=== PATIENT | female | born 1975 | race Hispanic/Latino ===

== ENCOUNTER 2016-12-14 18:09 | Emergency (ER) | payer BC ==
[2016-12-14 18:19] VITALS: BP 132/83
[2016-12-14 18:51] LABS: Basophils % (Auto) 1.1 % (0.0-1.8); Eosinophils % (Auto) 2.7 % (0.0-4.3); Hematocrit 30.3 % (30.3-42.9); Hemoglobin 9.4 gm/dl (10.1-14.3); Mean Corpuscular HGB Conc 31 % (30-34); Platelet Count 302 K/mm3 (140-440); Red Blood Count 4.43 M/mm3 (3.65-5.03); Red Cell Distribution Width 17.7 % (13.2-15.2); White Blood Count 8.8 K/mm3 (4.5-11.0)
[2016-12-14 18:54] LABS: Mean Corpuscular Volume 68 fl (79-97)
[2016-12-14 18:55] LABS: Mean Corpuscular Hemoglobin 21 pg (28-32)
[2016-12-14 19:02] LABS: Bilirubin,Urine NEG (Negative); Blood,Urine SM (Negative); Ketones,Urine NEG (Negative); Leukocyte Esterase,Urine LG (Negative); Mucus,Urine FEW /HPF; Nitrite,Urine NEG (Negative); Protein,Urine <15 mg/dL mg/dL (Negative); Urobilinogen,Urine < 2.0 mg/dL (<2.0)
[2016-12-14 19:10] LABS: Alanine Aminotransferase 11 units/L (7-56); Albumin 3.8 g/dL (3.9-5); Albumin/Globulin Ratio 1.1 %; Alkaline Phosphatase 31 units/L (35-129); Amylase 51 units/L (27-131); Anion Gap 19 mmol/L; Bilirubin,Total < 0.2 mg/dL (0.1-1.2); Blood Urea Nitrogen 16 mg/dL (7-17); Calcium 8.4 mg/dL (8.4-10.2); Carbon Dioxide 21 mmol/L (22-30); Chloride 103.6 mmol/L (98-107); Glucose 89 mg/dL (65-100); Lipase 34 units/L (13-60); Potassium 4.5 mmol/L (3.6-5.0); Sodium 139 mmol/L (137-145); Total Protein 7.3 g/dL (6.3-8.2)
--- NOTE | 2016-12-16 00:55 | ED Elopement Review ---
ED Pt Elopement review - Results review Lab results: Laboratory Tests 12/14/16 12/14/16 12/14/16 18:36 18:36 18:48 WBC 8.8 RBC 4.43 Hgb 9.4 L Hct 30.3 MCV 68 L MCH 21 L MCHC 31 RDW 17.7 H Plt Count 302 Lymph % (Auto) 37.8 H [place] % (Auto) 6.4 Eos % (Auto) 2.7 Baso % (Auto) 1.1 Lymph # 3.3 [place] # 0.6 Eos # 0.2 Baso # 0.1 Seg Neutrophils % 52.0 Seg Neutrophils # 4.6 Sodium 139 Potassium 4.5 Chloride 103.6 Carbon Dioxide 21 L Anion Gap 19 BUN 16 Creatinine 0.5 L Estimated GFR > 60 BUN/Creatinine Ratio 32.00 Glucose 89 Calcium 8.4 Total Bilirubin < 0.2 AST 21 ALT 11 Alkaline Phosphatase 31 L Total Protein 7.3 Albumin 3.8 L Albumin/Globulin Ratio 1.1 Amylase 51 Lipase 34 Urine Color Yellow Urine Turbidity Slightly-cloudy Urine pH 5.0 Ur Specific [place] 1.025 Urine Protein <15 mg/dl Urine Glucose (UA) Neg Urine Ketones Neg Urine Blood Sm Urine Nitrite Neg Urine Bilirubin Neg Urine Urobilinogen < 2.0 Ur Leukocyte Esterase Lg Urine WBC (Auto) 12.0 H Urine RBC (Auto) 4.0 U Epithel Cells (Auto) 19.0 H Calcium Oxalate Crystal 1+ Urine Mucus Few - Call Back decision Pt Call Back Decision: Pt to F/U with PMD (possible UTI, if sympomatic will need treament or possible repeat clean catch urine)
== END 2016-12-15 05:52 | disposition left against medical advice (07) ==
LOC: ED 18:09
DX: R10.9 Unspecified abdominal pain (principal); Z53.21 Procedure and treatment not carried out due to patient leaving prior to being seen by health care provider
CPT/HCPCS: 36415; 80053; 81001; 82150; 83690; 85025

== ENCOUNTER 2016-12-16 08:14 | Outpatient (CLI) | payer BC ==
--- NOTE | 2016-12-16 13:46 | Fluoroscopy Report ---
UPPER GI WITH AIR-CONTRAST AND SMALL BOWEL FOLLOW THROUGH History: Abdominal pain and bloating. Findings: No comparison at this facility. Electrical Continuity Inspector film of the abdomen demonstrates no evidence for bowel obstruction. Deglutition was normal. No aspiration. The esophagus is normal caliber and mucosal pattern throughout. Occasional tertiary contractions consistent with mild esophageal spasm were witnessed. No evidence for reflux or hernia. Gastric bypass surgery changes are noted. There is a small gastric pouch with anastomosis to small bowel loops. The gastric pouch is unremarkable. There is no evidence for mass or ulceration no obstruction. The small bowel follow-through images demonstrate borderline delayed transit of the oral contrast the small bowel loops. Time to the ileocecal valve is 2 hours and 30 minutes. There is no evidence for abnormal dilatation, polyposis, mass or inflammatory changes. No cecal filling defect. Impression: Essentially unremarkable upper GI exam. Gastric bypass changes are identified which appear unremarkable. Borderline to mild delay in transit of oral contrast through the small bowel loops. No obstruction or focal abnormality. Occasional mild esophageal spasm.
== END 2016-12-16 08:15 | disposition home or self-care (01) ==
LOC: FLUORO 08:14
PROVIDERS: ATTEND Specialist
DX: R10.9 Unspecified abdominal pain (principal); Z90.49 Acquired absence of other specified parts of digestive tract; Z88.0 Allergy status to penicillin
CPT/HCPCS: 74249

== ENCOUNTER 2017-11-26 09:13 | Outpatient (CLI) | payer BC ==
--- NOTE | 2017-11-26 13:47 | Cat Scan Report ---
CT ABDOMEN PELVIS WITH CONTRAST: HISTORY: Left upper quadrant abdominal pain. COMPARISON: none. TECHNIQUE: Helical CT in 1.25mm intervals following IV contrast. Sagittal and coronal reconstructions. FINDINGS: Lung bases: Normal. Liver: Normal. Biliary system: Cholecystectomy has been performed. No biliary dilatation. Pancreas: Normal. Spleen: Normal. Kidneys: Normal. Adrenal glands: Normal. Aorta: Normal. Intestines: Surgical changes are noted in the stomach, correlate with the patient's history. There is no evidence for obstruction, focal inflammation or obvious mass. Appendix: Not clearly identified, correlate with surgical history. Ascites: None. Adenopathy: None. Musculoskeletal: Normal. IMPRESSION: Unremarkable CT scan of the abdomen with contrast. Surgical changes as described.
== END 2017-11-26 09:14 | disposition home or self-care (01) ==
LOC: CT 09:13
PROVIDERS: ATTEND Specialist
DX: R10.12 Left upper quadrant pain (principal); Z90.49 Acquired absence of other specified parts of digestive tract
CPT/HCPCS: 74160; Q9967